=== PATIENT | female | born 1980 | race Caucasian/White ===

== ENCOUNTER 2018-02-01 19:04 | Emergency (ER) | payer OTHER ==
[~2018-02-01] VITALS: Ht 154.9 cm; Wt 51.3 kg
[~2018-02-01 19:04] MED LIST: ANTIVERT25 MG PO; BUTALB-APAP-CA1 EACH PO; CYMBALTA30 MG PO; NOHOMEMEDICATIONS; PREDNISONE 10 M10 MG PO; VISTARIL 25 MG25 M1 PO; ZPAK PO
[2018-02-01] MEDS ORDERED: IBUPROFEN 800800 MG PO (20:13)
[2018-02-01 20:37] VITALS: BP 148/85
== END 2018-02-01 20:37 | disposition home or self-care (01) ==
LOC: M.ERS 19:04
DX: M25.512 Pain in left shoulder (principal); M79.645 Pain in left finger(s); F17.210 Nicotine dependence, cigarettes, uncomplicated; Z88.6 Allergy status to analgesic agent

== ENCOUNTER 2019-02-04 20:14 | Emergency (ER) | payer MEDICAID ==
[~2019-02-04] VITALS: Ht 154.9 cm; Wt 49.0 kg
[~2019-02-04 20:14] MED LIST changes: +IBUPROFEN 800800 MG PO
[2019-02-04] MEDS ORDERED: TRAMADOL 50 MG50 MG PO (20:28)
[2019-02-04 20:53] LABS: URINE BILIRUBIN NEGATIVE (Negative); URINE BLOOD 1+ (Negative); URINE CLARITY CLEAR; URINE COLOR YELLOW; URINE GLUCOSE-RANDOM NEGATIVE (Negative); URINE KETONES NEGATIVE (Negative); URINE LEUKOCYTES-REFLEX NEGATIVE (Negative); URINE NITRITE-REFLEX NEGATIVE (Negative); URINE PROTEIN NEGATIVE (Negative); URINE UROBILINOGEN 0.2 E.U./dl (0.2-1.0)
[2019-02-04 20:54] LABS: ABSOLUTE EOSINOPHILS 0.1 thou/uL (0.0-0.7); ABSOLUTE LYMPHOCYTES 2.8 thou/uL (0.8-5.3); ABSOLUTE MONOCYTES 0.6 thou/uL (0.0-1.2); ABSOLUTE NEUTROPHILS 4.2 thou/uL (1.6-8.1); BASOPHILS 0.7 %; EOSINOPHILS 0.8 %; HEMOGLOBIN 12.7 gm/dL (12.0-15.0); LYMPHOCYTES 36.4 %; MCH 30.8 pg (26.0-34.0); MCHC 34.3 g/dL (28.0-37.0); MCV 89.7 fL (80.0-100.0); MONOCYTES 7.3 %; MPV 9.8 fl. (7.2-11.1); NUCLEATED RBCS 0 /100WBC; PLATELET COUNT* 291 thou/uL (150-400); POLYS 54.8 %; RBC 4.12 mil/uL (4.20-5.00); WBC 7.6 thou/uL (4.0-11.0)
[2019-02-04 21:02] LABS: BACTERIA-REFLEX None Seen /HPF (None Seen); CASTS None Seen /LPF (None Seen); CRYSTALS None Seen /LPF (None Seen); SQUAMOUS 4-10 Moderate /LPF (0-3); URINE RBC 0-2 Rare /HPF (0-2); URINE WBC-REFLEX None Seen /HPF (0-5)
[2019-02-04 21:03] LABS: CALCIUM 9.7 mg/dL (8.5-10.1); CREATININE 0.8 mg/dL (0.6-1.3); POTASSIUM 3.8 mmol/L (3.5-5.1)
[2019-02-04 21:07] LABS: ALBUMIN 4.2 g/dL (3.4-5.0); TOTAL BILIRUBIN 0.2 mg/dL (<0.1-1.0); TOTAL PROTEIN 8.1 g/dL (6.4-8.2)
[2019-02-04] MEDS ORDERED: TRANSDERM-SCOP1 EACH TRANSDERM (21:08)
[2019-02-04] MEDS ORDERED: ONDANSETRON HCL4 M2 PO (21:08)
[2019-02-04 22:18] VITALS: BP 164/92
--- NOTE | 2019-02-05 12:34 | EKG ---
[place] [address] ELECTROCARDIOGRAM REPORT Name: ANTONIO SHAVERN Room: [facility]#: [id number] Admission: 02/04/19 Attend Phys: Discharge: 02/04/19 Date of : 84 Report #: [id number] THIS REPORT FOR: //name// [facility] ED Test Date: 2019-02-04 Test Time: 20:37:28 Pat Name: ANTONIO SHAVER Department: Room: Gender: F Rn Orthopaedics: : 1980 Requested By: Deborah Burnett Order Number: [id number] MD: Adolfo Harvey Measurements Intervals [place] Rate: 93 P: 64 NV: 135 QRS: 28 QRSD: 84 T: 46 QT: 343 QTc: 427 Interpretive Statements Sinus rhythm Baseline wander in lead(s) I,III,aVL Compared to ECG 12/04/2016 20:34:34 Sinus tachycardia no longer present ST (T wave) deviation no longer present Electronically Signed On 02-05-2019 12:34:13 CDT by Adolfo Harvey [email or web address] <ELECTRONICALLY SIGNED> By: Wayne Harvey MD, FACC 02/05/19 1234 36 36 Wayne Harvey MD, [facility] /EPI
== END 2019-02-04 22:19 | disposition home or self-care (01) ==
LOC: M.ERS 20:14
PROVIDERS: Nurse Practitioner Family
DX: N93.8 Other specified abnormal uterine and vaginal bleeding (principal); R55 Syncope and collapse; R42 Dizziness and giddiness; F17.210 Nicotine dependence, cigarettes, uncomplicated; Z88.5 Allergy status to narcotic agent